=== PATIENT | male | born 1970 | race Caucasian/White ===

== ENCOUNTER 2020-08-27 12:41 | Outpatient (CLI) | payer OTHER, SELFPAY ==
--- NOTE | ~2020-08-27 | US_ITS ---
EXAMINATION: US soft tissue head and neck DATE: 08/27/2020 13:13 INDICATION: Right neck mass. Recent immunization in right arm. TECHNIQUE: Multiple grayscale and Doppler ultrasound images of the right neck were obtained. COMPARISON: None FINDINGS: There are normal lymph nodes in the patient's area of concern in right supraclavicular glory on. IMPRESSION: 1. No abnormal mass or lymphadenopathy. Reviewed, dictated and finalized at location B.
== END 2020-08-27 12:42 | disposition home or self-care (01) ==
LOC: ANHIMG 12:45
PROVIDERS: PCP Internal Medicine; Visit Provider Physician Assistant
DX: R22.1 Localized swelling, mass and lump, neck (principal)
CPT/HCPCS: 76536

== ENCOUNTER 2023-01-27 18:57 | Emergency (ER) | payer OTHER, SELFPAY ==
--- NOTE | 2023-01-27 19:02 | ED.GENADULT ---
HPI - General Adult General Chief complaint: Abdominal Pain Stated complaint: Headache,Diarrhea, Abdominal Pain Time Seen by Provider: 01/27/23 19:02 Source: patient, RN notes reviewed and old records reviewed Mode of arrival: ambulatory Limitations: no limitations History of Present Illness HPI narrative: 52-year-old male presents to the [facility] with complaints of Lower abdominal pain, headache and diarrhea that started yesterday and has gradually increased. Reports relief with urination, the pain returns. No frequency urgency or burning of urination. Reports a fever of 99.9 last night. No nausea or vomiting. Denies chest pain or shortness of breath Patient report he did have several episodes of diarrhea over the last couple days, was more normal today. States last Sunday he had some upper respiratory symptoms, they have resolved. Requesting a COVID test, COVID test negative Related Data Home Medications Medication Instructions Recorded Confirmed dextroamphetamine-amphetamine ER 30 mg PO QAM 03/18/19 01/27/23 20 mg 24hr capsule,extend release (Adderall XR) lamotrigine 100 mg tablet 100 mg PO DAILY 03/18/19 01/27/23 (Lamictal) adalimumab 40 mg/0.4 mL 40 mg subcut .every two weeks 12/11/22 01/27/23 subcutaneous syringe kit (Humira(CF)) secukinumab 150 mg/mL subcutaneous 150 mg subcut MONTHLY 01/27/23 01/27/23 syringe (Cosentyx) Allergies Allergy/AdvReac Type Severity Reaction Status Date / Time No Known Allergies Allergy Verified 01/27/23 18:59 Review of Systems Review of Systems: All systems reviewed & are unremarkable except as noted in HPI and below Constitutional: Constitutional: Reports no additional constitutional complaints Eyes: Eyes: Reports no additional eye complaints ENT: Reports system reviewed and no additional complaints, except as documented Cardiovascular: Cardiovascular: Reports no additional cardiovascular complaints, Denies chest pain and Denies dyspnea Respiratory: Respiratory: Reports no additional respiratory complaints, Denies chest congestion, Denies cough and Denies dyspnea Gastrointestinal: Gastrointestinal: Reports as per HPI, Reports abdominal pain, Denies nausea and Denies vomiting Musculoskeletal: Musculoskeletal: Reports no additional musculoskeletal complaints Integumentary/Breasts: Skin/Breast: Reports system reviewed and no additional complaints, except as docu Neurologic: Reports system reviewed and no additional complaints, except as documented Psychiatric: Psychiatric: Reports no additional psychiatric complaints Allergic/Immunologic: Allergic/Immunologic: Reports no additional allergic/immunologic complaints [facility] Past Medical History Medical History Elevated LDL cholesterol level Essential (primary) hypertension Surgical History Surgical History S/P nasal surgery Family History Family History Father Hypertension Grandparent Diabetes mellitus Heart disease Cancer Tuberculosis Cerebrovascular accident Hypertension Social History Social History Smoking status: Never smoker Second hand tobacco smoke exposure: No Alcohol intake: current Substance use: never Current Housing: Decline to Answer Concerned About Future Housing: Decline to Answer Difficulty Paying Gas/Electric Bills: Decline to Answer Difficulty Paying for Meds: Decline to Answer Currently Unemployed: Decline to Answer Education: Decline to Answer Difficulty w/ Childcare or Family Care: Decline to Answer Living arrangements: with family Occupation/Education: occupation 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
[2023-01-27 19:04] VITALS: BP 140/80; PULSE 85; RESP 20; TEMP 36.8; O2SAT 99
== END 2023-01-27 19:24 | disposition short-term general hospital (02) ==
LOC: EXPTROY 19:00
PROVIDERS: Emergency Provider Nurse Practitioner; PCP Internal Medicine
DX: R10.31 Right lower quadrant pain (principal); Z20.822 Contact with and (suspected) exposure to COVID-19; I10 Essential (primary) hypertension; E78.00 Pure hypercholesterolemia, unspecified
CPT/HCPCS: 87426; 99213; C9803; G0463

== ENCOUNTER 2023-01-27 19:40 | Emergency (ER) | payer OTHER, SELFPAY ==
--- NOTE | ~2023-01-27 | CT_ITS ---
EXAMINATION: CT abdomen pelvis w con DATE: 01/28/2023 00:33 INDICATION: Right lower quadrant pain TECHNIQUE: Computed tomography (CT) of the abdomen and pelvis was performed with 100 cc Omnipaque 350 intravenous contrast. The dose-length product was 643.38 mGy-cm. Automated exposure control and iter ative reconstruction technique were employed. COMPARISON: None. FINDINGS: There is dependent atelectasis. Heart size normal. No significant pleural or pericardial ef fusion. No significant vascular abnormality. Small retroperitoneal lymph nodes, likely reactive. Ther e is acute sigmoid diverticulitis without evidence for perforation or abscess. No obstruction. No andrew e air. Small subcentimeter hypodensity left hepatic lobe, most likely benign. The spleen, pancreas, adrenal glands and kidneys are unremarkable. Gallbladder is present. IMPRESSION: 1. Acute uncomplicated sigmoid diverticulitis. Reviewed, dictated and finalized at location A.
[2023-01-27 20:15] VITALS: BP 140/81; PULSE 75; RESP 16; TEMP 36.9; O2SAT 100
[2023-01-27 20:25] LABS: Basophils Percent Auto 0.2 % (0.2-1.2); Eosinophils Absolute Auto 0.1 K/mm3 (0-0.3); Eosinophils Percent Auto 0.9 % (0-4.4); Hematocrit 44.3 % (42.0-52.0); Hemoglobin 14.6 g/dL (14.0-18.0); Immature Granulocyte Absolute 0.02 K/mm3 (0.00-0.031); Immature Granulocyte Percent A 0.2 % (0-0.5); Lymphocytes Absolute Auto 1.69 K/mm3 (0.9-3.2); Lymphocytes Percent Auto 18.9 % (18.3-44.2); Mean Corpuscular Hemoglobin 30.7 pg (26-34); Mean Corpuscular Volume 93.3 fl (80-100); Mean Platelet Volume 9.8 fl (7.4-10.4); Monocytes Percent Auto 11.7 % (2.6-8.5); Neutrophils Absolute Auto 6.1 K/mm3 (1.3-6.7); Neutrophils Percent Auto 68.1 % (45.5-73.1); Platelet Count Result 225 k/mm3 (150-375); Red Blood Count 4.75 M/mm3 (4.6-6.20); Red Cell Distribution Width 12.2 % (11.5-14.5); White Blood Count 8.9 K/mm3 (4.5-10.0)
[2023-01-27 20:34] LABS: Alanine Aminotransferase 36 U/L (6-50); Albumin Level 4.4 g/dL (3.5-5.1); Alkaline Phosphatase 62 U/L (38-126); Anion Gap 6 mmol/L (8-16); Aspartate Amino Transferase 30 U/L (17-59); Bilirubin,Total 0.6 mg/dL (0.2-1.3); Blood Urea Nitrogen 16 mg/dL (9-20); Calcium 9.7 mg/dL (8.4-10.2); Carbon Dioxide 29 mmol/L (22-30); Chloride 102 mmol/L (98-107); Estimated CRCL calculation 91 ml/min; Estimated Glomerular Filt Rate > 60; Glucose 98 mg/dL (65-110); Lipase 67 U/L (23-300); Potassium 4.4 mmol/L (3.4-5.0); Sodium 137 mmol/L (137-145)
[2023-01-27 23:40] LABS: Appearance Urine Clear (Clear); Bilirubin Urine Negative (Negative); Blood Urine Negative (Negative); Color Urine Yellow (Yellow); Glucose Urine UA Negative (Negative); Ketones Urine Negative (Negative); Leukocyte Esterase Ur Negative LEU/UL (Negative); Nitrate Urine Negative (Negative); Protein Urine Negative (Negative); Specific Grav Ur 1.019 (1.001-1.035); Urobilinogen Urine 0.2 mg/dL (<2.0)
--- NOTE | 2023-01-27 23:51 | ED.ABDPAIN ---
HPI - Abdominal Pain General Chief Complaint: Abdominal Pain <WALDO Johnson Last Filed: 01/28/23 17:14> Stated Complaint: RLO pain sent from <WALDO Johnson Last Filed: 01/28/23 17:14> Time Seen by Provider: 01/27/23 23:36 <WALDO Johnson Last Filed: 01/28/23 17:14> Source: patient <WALDO Johnson Last Filed: 01/28/23 17:14> Mode of arrival: ambulatory <WALDO Johnson Last Filed: 01/28/23 17:14> Limitations: no limitations <WALDO Johnson Last Filed: 01/28/23 17:14> History of Present Illness HPI narrative: This is a 52 year old male that presents to the ER for right lower quadrant abdominal pain. Reports he has had some diarrhea ongoing over the last several days. Today he started to have pain in his right lower quadrant. Reports subjective fevers. He was seen in urgent care and sent here for further evaluation. Denies nausea, vomiting, dysuria, hematuria. <WALDO Johnson Last Filed: 01/28/23 17:14> Related Data Home Medications: Home Medications Medication Instructions Recorded Confirmed dextroamphetamine-amphetamine ER 30 mg PO QAM 03/18/19 01/27/23 20 mg 24hr capsule,extend release (Adderall XR) lamotrigine 100 mg tablet 100 mg PO DAILY 03/18/19 01/27/23 (Lamictal) adalimumab 40 mg/0.4 mL 40 mg subcut .every two weeks 12/11/22 01/27/23 subcutaneous syringe kit (Humira(CF)) secukinumab 150 mg/mL subcutaneous 150 mg subcut MONTHLY 01/27/23 01/27/23 syringe (Cosentyx) <WALDO Johnson Last Filed: 01/28/23 17:14> Allergies/Adverse Reactions: Allergies Allergy/AdvReac Type Severity Reaction Status Date / Time No Known Allergies Allergy Verified 01/27/23 19:41 <WALDO Johnson Last Filed: 01/28/23 17:14> Review of Systems Review of Systems: CONSTITUTIONAL: Reports fever GASTROINTESTINAL: Reports abdominal pain, and diarrhea. Denies nausea or vomiting GENITOURINARY: Denies dysuria or hematuria. <Dalia Olsen PA-C - Last Filed: 01/28/23 17:14> All systems reviewed & are unremarkable except as noted in HPI and below <Dalia Olsen PA-C - Last Filed: 01/28/23 17:14> PMFSH Past Medical History Medical History: Medical History Elevated LDL cholesterol level Essential (primary) hypertension <WALDO Johnson Last Filed: 01/28/23 17:14> Surgical History Surgical History: Surgical History S/P nasal surgery <Dalia Olsen PA-C - Last Filed: 01/28/23 17:14> Family History Family History: Family History Father Hypertension Grandparent Diabetes mellitus Heart disease Cancer Tuberculosis Cerebrovascular accident Hypertension <Dalia Olsen PA-C - Last Filed: 01/28/23 17:14> Social History Social History: Social History Smoking status: Never smoker Second hand tobacco smoke exposure: No Alcohol intake: current Substance use: never Current Housing: Decline to Answer Concerned About Future Housing: Decline to Answer Difficulty Paying Gas/Electric Bills: Decline to Answer Difficulty Paying for Meds: Decline to Answer Currently Unemployed: Decline to Answer Education: Decline to Answer Difficulty w/ Childcare or Family Care: Decline to Answer Living arrangements: with family Occupation/Education: occupation Additional occupation/education comments: [place]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 HEAD: Normocephalic, atraumatic. EYES: EOMI. CHEST: Clear to auscultation. No respir
[2023-01-27 23:57] LABS: Add Urine Microscopic? NO
[2023-01-28] MEDS: KETOROLAC 15 MG/ML VIAL (*BKC) IV PUSH (03:39)
[2023-01-28 03:41] VITALS: BP 128/75; PULSE 61; RESP 15; O2SAT 100
== END 2023-01-28 05:13 | disposition home or self-care (01) ==
PROVIDERS: Emergency Medicine; Emergency Provider Physician Assistant; PCP Internal Medicine
DX: K57.32 Diverticulitis of large intestine without perforation or abscess without bleeding (principal); I10 Essential (primary) hypertension; E78.00 Pure hypercholesterolemia, unspecified
CPT/HCPCS: 36415; 74177; 80053; 81003; 83690; 85025; 96374; 99284; J1885; Q9967